=== PATIENT | female | born 1990 ===

== ENCOUNTER 2018-05-30 16:56 | Emergency (ER) | payer MEDICAID ==
[2018-05-30] MEDS ORDERED: NS 1,000 ML IV ONE ×2 (17:51→18:04)
--- NOTE | 2018-05-30 18:22 | EDPHY ---
H & P Time Seen by Provider: 05/30/18 17:16 HPI/ROS: CHIEF COMPLAINT: Visual abnormality HISTORY OF PRESENT ILLNESS: Patient yesterday developed about 45 min of visual abnormality. She was getting out of the bath about to order lunch when she noticed white streaks across both eyes, it was definitely cross both visual tatum of both eyes. She would close 1 eye and it would be present in the other. She felt like she had difficulty seeing and lasted about 45 min and then dissipated and afterwards she feels some frontal pressure in her head along with dizziness or lightheadedness which persists until today. She feels a little bit like she is hung over. Does not have weakness or numbness in extremities or vertigo or trouble with balance or speech or thought. No neck pain or recent injury or trauma. Currently vision is back to normal. REVIEW OF SYSTEMS: Eye: HPI ENT: no sore throat or ear symptoms Cardiac: no chest pain or syncope Pulmonary: no cough or SOB Abdomen: no vomiting, diarrhea, abdominal pain Musculoskeletal: No neck pain Skin: no rash Neuro: HPI Constitutional: no fever : no urinary symptoms A comprehensive 10 point review of systems is otherwise negative aside from elements mentioned in the history of present illness. PAST MEDICAL HISTORY: Tonsils and adenoids, nasal surgery, attention deficit hyperactivity disorder Family history: Negative for intracranial mass or aneurysm, positive for glaucoma Social history: Law student General Appearance: Alert and conversant, cooperative. Able to smile and seems in a good mood. Eyes: No scleral icterus. Visual acuity noted. Discs are sharp. Normal anterior chambers. Pupils equal reactive extraocular motion intact. ENT, Mouth: Normal mucous membranes. Respiratory: Normal respiratory effort, breath sounds equal, lungs are clear to auscultation. Cardiovascular: Regular rate and rhythm. Gastrointestinal: Abdomen is soft and non tender. Neurological: Alert, face symmetric, normal motor and sensory in extremities. Ambulatory not ataxic. Normal [id number] bilaterally. No pronator drift. Speech is fluent. Skin: Warm and dry, no rashes. Musculoskeletal: No peripheral edema. Psychiatric: Not agitated. Emergency Department course/MDM: The visual acuity noted is normal. Visual symptoms have completely resolved and she has a normal neurologic examination today. Differential considered including but not limited to glaucoma, atypical migraine, intracranial mass or bleed, [employer] infection, vascular dissection. Think that atypical migraine is by far the most likely diagnosis. Follow-up without imaging discussed with the patient who is in agreement. Smoking Status: Never smoked Constitutional: Initial Vital Signs Temperature (C) 36.9 C 05/30/18 17:00 Heart Rate 100 05/30/18 17:00 Respiratory Rate 16 05/30/18 17:00 Blood Pressure 159/83 H 05/30/18 17:00 O2 Sat (%) 98 05/30/18 17:00 O2 Delivery Mode Room Air Allergies/Adverse Reactions: No Known Allergies Allergy (Unverified 05/30/18 17:00) Home Medications: Medication Instructions Recorded NK [No Known Home Meds] 05/30/18 Medical Decision Making - Data Points Laboratory Results: Laboratory Results 05/30/18 17:50 05/30/18 17:50 05/30/18 05/30/18 05/30/18 17:50 17:50 17:50 WBC 7.79 10^3/uL 10^3/uL (3.80-9.50) RBC 4.91 10^6/uL 10^6/uL (4.18-5.33) Hgb 14.5 g/dL g/dL (12.6-16.3) Hct 43.7 % % (38.0-47.0) MCV 89.0 fL fL (81.5-99.8) MCH 29.5 pg pg (27.9-34.1) MCHC 33.2 g/dL g/dL (32.4-36.7) RDW 12.2 % % (11.5-15.2) Plt Count 223 10^3/uL 10^3/uL (150-400) MPV 11.1 fL fL (8.7-11.7) Neut % (Auto) 53.1 % % (39.3-74.2) Lymph % (Auto) 35.7 % % (15.0-45.0) Wells % (Auto) 9.4 % % (4.5-13.0) Eos % (Auto) 0.8 % % (0.6-7.6) Baso % (Auto) 0.9 % % (0.3-1.7) Nucleat RBC Rel Count 0.0 % % (0.0-0.2) Absolute Neuts (auto) 4.14 10^3/uL 10^3/uL (1.70-6.50) Absolute Lymphs (auto) 2.78 10^3/uL 10^3/uL (1.00-3.00) Absolute Monos (auto) 0.73 10^3/uL 10^3/uL (0.30-0.80) Absolute Eos (auto) 0.06 10^3/uL 10^3/uL (0.03-0.40) Absolute Basos (auto) 0.07 10^3/uL 10^3/uL (0.02-0.10) Absolute Nucleated RBC 0.00 10^3/uL 10^3/uL (0-0.01) Immature Gran % 0.1 % % (0.0-1.1) Immature Gran # 0.01 10^3/uL 10^3/uL (0.00-0.10) Sodium 137 mEq/L mEq/L (135-145) Potassium 4.3 mEq/L mEq/L (3.5-5.2) Chloride 105 mEq/L mEq/L (97-110) Carbon Dioxide 25 mEq/l mEq/l (22-31) Anion Gap 7 mEq/L mEq/L (6-14) BUN 14 mg/dL mg/dL (7-23) Creatinine 0.8 mg/dL mg/dL (0.6-1.0) Estimated GFR > 60 Glucose 78 mg/dL mg/dL (70-100) Calcium 9.9 mg/dL mg/dL (8.5-10.4) Beta HCG, Qual NEGATIVE Medications Given: Discontinued Medications Sodium Chloride (Ns) 1,000 mls @ 0 mls/hr IV ONCE ONE PRN Reason: Wide Open Stop: 05/30/18 17:52 Last Admin: 05/30/18 17:51 Dose: 1,000 mls Sodium Chloride (Ns) 1,000 mls @ 0 mls/hr IV EDNOW ONE; Wide Open PRN Reason: Protocol Stop: 05/30/18 18:05 Last Admin: 05/30/18 18:24 Dose: Not Given Departure - Departure Disposition: Home, Routine, Self-Care Clinical Impression: Atypical migraine Condition: Good Instructions: Migraine Headache (ED) Additional Instructions: Please follow-up with referral primary care clinic or Neurology in the next 2 weeks. Referrals: Nath,Raphael C, DO [Medical Doctor] - As per Instructions [facility],. [Clinic] - As per Instructions Stand Alone Forms: School Excuse
[2018-05-30 18:23] LABS: PLATELET COUNT 223 10^3/uL (150-400)
[2018-05-30 19:04] VITALS: BP 127/77
== END 2018-05-30 19:33 | disposition home or self-care (01) ==
DX: G43.909 Migraine, unspecified, not intractable, without status migrainosus (principal); E86.9 Volume depletion, unspecified